=== PATIENT | female | born 1975 | race Caucasian/White ===

== ENCOUNTER 2020-03-23 12:22 | Emergency (ER) | payer OTHER ==
[2020-03-23 12:45] VITALS: BP 115/73; PULSE 89; TEMP 98.3; BMI 25.0
--- NOTE | 2020-03-23 12:46 | PDOC ---
History of Present Illness - General Chief Complaint: Injury Stated Complaint: LEFT ANKLE INJURY Time Seen by Provider: 03/23/20 12:32 History Source: Patient Exam Limitations: No Limitations - History of Present Illness Initial Comments: 45 yo F presents with L lateral ankle pain after she twisted it yesterday. She states that she was walking down the stairs, missed one. She has had L lateral ankle pain since that time, having difficulty putting weight on it. She has been taking ibuprofen with some relief. She noticed swelling and bruising today, prompting her to seek evaluation. She also notes pain when she moves her toes. No color change to the toes. No change in sensation. No weakness. Past History - Medical History Allergies/Adverse Reactions: Allergies Allergy/AdvReac Type Severity Reaction Status Date / Time No Known Allergies Allergy Unverified 03/23/20 12:24 Home Medications: Ambulatory Orders NK [No Known Home Medication] 03/23/20 Review of Systems - Review of Systems Able to Perform ROS?: Yes Comments:: GENERAL/CONSTITUTIONAL: No fever or chills. No weakness. MUSCULOSKELETAL: +L ankle/foot pain. No neck or back pain. SKIN: No rash. NEUROLOGIC: No headache, vertigo, loss of consciousness, or change in strength/sensation. *Physical Exam - Physical Exam GENERAL: Awake, alert, and fully oriented, in no acute distress HEAD: No signs of trauma EXTREMITIES: L ankle with swelling and ecchymosis to the L lateral foot, just inferior to the lateral malleolus. No tenderness to the 5th metatarsal. No obvious deformity aside from swelling. Remainder of extremities with normal range of motion, no edema. No clubbing or cyanosis. No cords, erythema, or tenderness NEUROLOGICAL: Cranial nerves II through XII grossly intact. Normal speech. Motor and sensation intact. +Antalgic gait. SKIN: Warm, dry, normal turgor, no rashes or lesions noted. Procedures - Splinting Splint Location: Left: Ankle Pre-Proc Neuro Vasc Exam: normal Pre-Made Type: aircast Post-Proc Neuro Vasc Exam: normal Medical Decision Making - Medical Decision Making 03/23/20 12:36 Pt declined pain meds. Will obtain XR to r/o fracture. 03/23/20 16:05 XR read as negative by radiology. Aircast placed. Pt was crutch trained. Recommended ibuprofen as needed for pain. F/u with ortho. Discharge - Discharge Information Problems reviewed: Yes Clinical Impression/Diagnosis: Ankle sprain Qualifiers: Encounter type: initial encounter Involved ligament of ankle: unspecified ligament Laterality: left Qualified Code(s): S93.402A - Sprain of unspecified ligament of left ankle, initial encounter Condition: Stable Disposition: HOME - Follow up/Referral Referrals: Michael Osborne MD [Staff Physician] - - Patient Discharge Instructions Patient Printed Discharge Instructions: DI for Ankle Sprain - Post Discharge Activity
== END 2020-03-23 16:17 | disposition home or self-care (01) ==
LOC: FER 12:22
DX: S93.402A Sprain of unspecified ligament of left ankle, initial encounter (principal)
CPT/HCPCS: 73610-TC-LT-FY; 73630-TC-LT; 99284-25